=== PATIENT | male | born 1985 | race Asian ===

== ENCOUNTER 2017-07-27 03:59 | Emergency (ER) | payer SELFPAY ==
[~2017-07-27] VITALS: Ht 177.8 cm; Wt 59.0 kg
[2017-07-27] MEDS ORDERED: Haloperidol 5mg/ml Inj ONE ×2 (04:04→04:17)
[2017-07-27] MEDS ORDERED: Tetanus/Diptheria/Pertussis Vaccine 0.5ml Syr IM ONE (04:15)
[2017-07-27] MEDS ORDERED: Haloperidol 5mg/ml Inj IM ONE (04:15)
[2017-07-27] MEDS ORDERED: LORazepam Inj 2mg/ml 1ml ONE (04:18)
[2017-07-27] MEDS ORDERED: LORazepam Inj 2mg/ml 1ml IM ONE (04:30)
--- NOTE | 2017-07-27 04:41 | Emergency Room Report ---
History of Present Illness General Chief Complaint: Substance Abuse Source: Patient, EMS Present Illness HPI This is a 32-year-old [place] male who presents with chief complaint of agitation and drug abuse. Patient said that he's been using cocaine tonight. Also had alcohol. He was acting up and said his girlfriend left him. Because of that he said he had a panic attack and things got worse. He punches window and was running around on the street. He was curled up on the sidewalk and bystander called 911. Per EMS he was very agitated so they asked for police escort. Patient was very agitated here. He had to be restrained initially. He calmed down so definitely after Haldol and Ativan. The handcuffs from police for able to be removed. Patient denies any suicidal thought homicidal thought. He was concerned that we may chop off his hand. Allergies: Coded Allergies: No Known Allergies (Unverified , 07/27/17) Patient History Past Medical History: see triage record, old chart reviewed, psych hx Past Surgical History: other Pertinent Family History: none Social History: Reports: smoking, alcohol use, drug use Immunizations: other Reviewed Nursing Documentation: PMH: Agreed; PSxH: Agreed Nursing Documentation-PMH Past Medical History: No History, Except For History Of Psychiatric Problem: Yes - Anxiety Review of Systems Eye: Denies: eye pain, blurred vision ENT: Denies: ear pain, nose congestion, throat swelling Respiratory: Denies: cough, shortness of breath Cardiovascular: Denies: chest pain, palpitations Gastrointestinal: Denies: abdominal pain, diarrhea, nausea, vomiting Musculoskeletal: Denies: back pain, joint pain Skin: Denies: rash Psychiatric: Reports: anxiety, emotional problems, hallucinations Neurological: Denies: headache, numbness Endocrine: Denies: increased thirst, increased urine Hematologic/Lymphatic: Denies: easy bruising All Other Systems: negative except mentioned in HPI Physical Exam Vital Signs Date Time Temp Pulse Resp B/P (MAP) Pulse Ox O2 Delivery O2 Flow Rate FiO2 07/27/17 03:59 99.3 134 35 122/70 97 Room Air 99.3 vitals with tachycardia Sp02 EP Interpretation: reviewed, normal General Appearance: well appearing, no apparent distress, alert, other - very agitated Head: normocephalic, atraumatic Eyes: bilateral eye PERRL, bilateral eye EOMI ENT: hearing grossly normal, normal pharynx Neck: full range of motion, supple, no meningismus Respiratory: chest non-tender, lungs clear, normal breath sounds Cardiovascular #1: regular rate, rhythm, no murmur, tachycardia Gastrointestinal: normal bowel sounds, non tender, no mass, no organomegaly, no bruit, non-distended Musculoskeletal: back normal, normal range of motion, other - Left hand: He has a 2 cm laceration over the dorsum of the index finger at the proximal phalanx. It superficial. No foreign body. No bleeding. There is a 2cm lac over the index MCP joint. FROM. no FB. does not involved capsule. On the palm, there is a 3cm lac over the hypothenar eminence. specs of dirt seen. No tendon involvement. Neurologic: alert, oriented x3 Psychiatric: anxious, other - agitated, paranoid Skin: warm/dry Procedures Laceration/Wound Repair Laceration/Wound Repair #1: Wound Location: upper extremity - left index finger Wound's Depth, Shape: superficial Wound Length (cm): 2 Wound Explored: clean Irrigated w/ Saline (ccs): 500 Betadine Prep?: Yes Anesthesia: 1% Lidocaine Volume Anesthetic (ccs): 2 Wound Repaired With: sutures Suture Size/Type: 4:0, other - chromic Number of Sutures: 3 Patient Tolerated: Well Complications: None Laceration/Wound Repair #2: Consent: Verbal Wound Location: upper extremity Wound's Depth, Shape: superficial, linear Wound Length (cm): 2 Wound Explored: clean Irrigated w/ Saline (ccs): 500 Betadine Prep?: Yes Anesthesia: 1% Lidocaine Volume Anesthetic (ccs): 2 Wound Repaired With: sutures Suture Size/Type: 4:0, other - chromic Number of Sutures: 3 Patient Tolerated: Well Complications: None Laceration/Wound Repair #3: Consent: Verbal Wound Location: upper extremity - left palm Wound's Depth, Shape: linear, irregular, contused tissue Wound Length (cm): 3 Wound Explored: foreign body removed Irrigated w/ Saline (ccs): 1000 Anesthesia: 1% Lidocaine Volume Anesthetic (ccs): 3 Wound Debrided: minimal Wound Repaired With: sutures Suture Size/Type: 4:0, other - chromic Number of Sutures: 5 Patient Tolerated: Well Complications: None Medical Decision Making Diagnostic Impression: Primary Impression: Cocaine abuse Additional Impressions: Psychosis Qualified Codes: F23 - Brief psychotic disorder Finger laceration Qualified Codes: S61.211A - Laceration without foreign body of left index finger without damage to nail, initial encounter Hand laceration Qualified Codes: S61.422A - Laceration with foreign body of left hand, initial encounter Foreign body (FB) in soft tissue Hypoglycemia ER Course Patient presents with psychosis secondary to drug abuse. His elevated white count is probably secondary to his drug abuse and stress response. No evidence of infection. He said he hasn't eaten anything today. That may account for his hypoglycemia. D50 given here and was given. Patient is much calmer after Haldol and out of it. Restraints were removed right away. He is increased risk for infection secondary to foreign body. But I believe I removed everything. Antibiotics given. We'll recheck after IV fluid and labs. He is better we'll discharge home. Right now denied any suicidal thoughts or homicidal thought. We'll give him fluids and recheck. Once he is better, can be discharged. This patient is a chronic risk of self injury due to poor impulse control, limited coping skills, and judgment intermittently impaired by intoxication. I believe that the available clinical evidence to suggest that these characteristics derived primarily from personality disorder and are likely very stable over time. Hospitalization would likely attenuate risk of self-harm only during shelter period, without lasting risk reduction. Serious self-harm , while possible, would likely be inadvertent, and because of impulsivity, and foreseeable. For these reasons, I do not believe hospitalization would provide meaningful reduction in risk of self-harm. Rhythm Strip Diag. Results Rhythm Strip Time: 05:31 EP Interpretation: yes Rate: 90 Rhythm: NSR, no PVC's, no ectopy Last Vital Signs Date Time Temp Pulse Resp B/P (MAP) Pulse Ox O2 Delivery O2 Flow Rate FiO2 07/27/17 03:59 99.3 134 35 122/70 97 Room Air 99.3 Status: improved Disposition: HOME, SELF-CARE Condition: Stable Scripts Cephalexin* (KEFLEX*) 500 Mg Capsule 500 MG ORAL TID, #21 CAP Prov: MAURICE BETANCOURT M.D. 07/27/17 Referrals: NOT CHOSEN IPA/,REFERRING (PCP) Patient Instructions: Substance Use Disorder Additional Instructions: Stop using drugs. Follow-up with your Dr. in 3-5 days for recheck. Return if worse. Suture will fall off. Go to rehabilitation. Return if worse. MAURICE BETANCOURT M.D. Jul 27, 2017 04:41
[2017-07-27 05:08] LABS: HEMATOCRIT 44.6 % (42.0-52.0); HEMOGLOBIN 14.5 G/DL (14.2-18.0); MEAN CORPUSCULAR VOLUME 92 FL (80-99); PLATELET COUNT 310 K/UL (150-450); RED BLOOD COUNT 4.83 M/UL (4.70-6.10); RED CELL DISTRIBUTION WIDTH 11.1 % (11.6-14.8)
[2017-07-27 05:15] VITALS: BP 86/44
[2017-07-27 05:15] LABS: WHITE BLOOD COUNT 31.3 K/UL (4.8-10.8)
[2017-07-27 05:26] LABS: ANION GAP 23 mmol/L (5-15); BLOOD UREA NITROGEN 18 mg/dL (7-18); CALCIUM 9.6 MG/DL (8.5-10.1); CARBON DIOXIDE 16 MMOL/L (21-32); CHLORIDE 100 MMOL/L (98-107); CREATININE 1.6 MG/DL (0.55-1.30); SODIUM 139 MMOL/L (136-145)
[2017-07-27] MEDS ORDERED: ceFAZolin 1gm/50ml Premix 50 ML IV ONE (05:30)
[2017-07-27] MEDS ORDERED: CEPHALEXIN500 MG ORAL (05:32)
[2017-07-27 06:19] VITALS: BP 107/53
[2017-07-27 07:11] LABS: HEMATOCRIT 34.6 % (42.0-52.0); HEMOGLOBIN 11.9 G/DL (14.2-18.0); MEAN CORPUSCULAR VOLUME 91 FL (80-99); PLATELET COUNT 207 K/UL (150-450); RED CELL DISTRIBUTION WIDTH 10.8 % (11.6-14.8)
[2017-07-27 08:30] VITALS: BP 106/58
[2017-07-27 08:32] VITALS: BP 106/58
== END 2017-07-27 08:37 | disposition home or self-care (01) ==
LOC: EDBD 03:59 → EMR 04:18
DX: F14.10 Cocaine abuse, uncomplicated (principal); F29 Unspecified psychosis not due to a substance or known physiological condition; S61.211A Laceration without foreign body of left index finger without damage to nail, initial encounter; S61.412A Laceration without foreign body of left hand, initial encounter; W22.8XXA Striking against or struck by other objects, initial encounter; Y92.89 Other specified places as the place of occurrence of the external cause; M79.5 Residual foreign body in soft tissue; E16.2 Hypoglycemia, unspecified; F41.9 Anxiety disorder, unspecified; Z23 Encounter for immunization
CPT/HCPCS: 12002; 36415; 80048; 85007; 85025; 90471; 90715; 96360; 96361; 96372; 96374; 99284; G0480; J0690; J1630; 80329